=== PATIENT | female | born 1955 | race Caucasian/White ===

== ENCOUNTER 2019-11-27 15:26 | Outpatient (CLI) | payer MEDICARE, OTHER, SELFPAY ==
--- NOTE | 2019-11-27 16:08 | XR_ITS ---
WS: [id number] ELBOW RIGHT TECHNIQUE: 3 views of the right elbow CLINICAL INFORMATION: RIGHT LATERAL EPICONDYLITIS COMPARISON: None. FINDINGS: No significant joint effusion. Distal humerus is normal in appearance. Normal radial head. Normal ole cranon. No evidence of acute fracture dislocation. XR/XR elbow RT min 3V* [id number] IMPRESSION: No acute fractures
--- NOTE | 2019-11-27 16:09 | XR_ITS ---
WS: [id number] WRIST RIGHT TECHNIQUE: 3 views of the right wrist CLINICAL INFORMATION: RIGHT LATERAL EPICONDYLITIS COMPARISON: None. FINDINGS: Diffuse osteopenia. Plate and screw fixation involving the distal radius extending into the third met acarpal shaft. Prior proximal and distal carpal row fusion. Chronic resection or erosion of the dista l ulna is unchanged. Small bony avulsion at the tip of the ulna better seen on the oblique view is new from 2019. Recommen d correlation with area of trauma. XR/XR wrist RT min 3V* [id number] IMPRESSION: 1. Stable postoperative changes plate and screw fixation involving the distal radius extending into the third metacarpal shaft. 2. Chronic unchanged proximal and distal row carpal fusion. 3. Tiny bony avulsion at the tip of the distal ulna appears new compared to [facility] 2018. Recommend correlation with area of trauma. 4. 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
== END 2019-11-27 15:27 | disposition home or self-care (01) ==
LOC: RAD 15:31
PROVIDERS: Family Provider Electrodiagnostic Medicine; PCP Electrodiagnostic Medicine; Visit Provider Electrodiagnostic Medicine
DX: M77.11 Lateral epicondylitis, right elbow (principal); M25.531 Pain in right wrist; M06.9 Rheumatoid arthritis, unspecified
CPT/HCPCS: 73080; 73110

== ENCOUNTER → 2019-12-05 10:43 | Outpatient (BNVA) | payer MEDICARE, OTHER, SELFPAY | PROVIDERS: Family Provider Electrodiagnostic Medicine; PCP Electrodiagnostic Medicine; Visit Provider Internal Medicine Rheumatology | DX: M05.79 Rheumatoid arthritis with rheumatoid factor of multiple sites without organ or systems involvement (principal); Z79.899 Other long term (current) drug therapy | CPT/HCPCS: 36415; 80076; 82565; 85025; 85651 ==

== ENCOUNTER 2020-03-18 08:56 | Outpatient (CLI) | payer MEDICARE, OTHER, SELFPAY ==
--- NOTE | 2020-03-18 09:04 | XR_ITS ---
WS: [id number] LUMBAR SPINE: 3 VIEWS TECHNIQUE: AP, lateral and L5-S1 spot. HISTORY: BACK PAIN, LUMBAR WITH RADICULOPATHY COMPARISON: None available. Posterior lumbar alignment is normal. There is mild LEFT convex curvature of the lumbar spine. Asymme tric disc space narrowing along the concave portion of the curvature most significant at L3-4. No fra ctures. Marked disc space narrowing and desiccation at L3-4 and L5-S1 with small endplate osteophytes. Mild narrowing of the RIGHT SI joint with sclerosis. Prior cholecystectomy. XR/XR lumbar spine 2-3V* [id number] IMPRESSION: 1. Mild LEFT convex scoliosis with asymmetric disc space narrowing at L3-4. 2. No fracture. 3. Advanced degenerative disc disease at L3-4 and L5-S1.
== END 2020-03-18 08:57 | disposition home or self-care (01) ==
LOC: RADWPI 09:01
PROVIDERS: Family Provider Electrodiagnostic Medicine; PCP Electrodiagnostic Medicine; Visit Provider Electrodiagnostic Medicine
DX: M54.16 Radiculopathy, lumbar region (principal); M54.9 Dorsalgia, unspecified; M51.36 Other intervertebral disc degeneration, lumbar region
CPT/HCPCS: 72100

== ENCOUNTER 2020-03-22 12:49 | Outpatient (CLI) | payer MEDICARE, OTHER, SELFPAY ==
--- NOTE | 2020-03-22 12:57 | MR_ITS ---
WS: [id number] MRI LUMBAR SPINE NONCONTRAST TECHNIQUE: Sagittal T1, T2 and STIR imaging. Axial T1 and T2 imaging. CLINICAL INFORMATION: BACK PAIN, LUMBAR, W/RADICULOPATHY COMPARISON: None. FINDINGS: Mild lumbar curve. No acute compression. Multilevel disc bulging. Disc bulging worse at T12-L1, L3-L4 , L4-5. T12-L1: Mild disc bulging with slight effacement of ventral thecal sac. Spinal canal and foramen are patent. L1-L2: Mild disc bulging with slight effacement of ventral thecal sac. Narrowing of the left subartic ular recess. Mild facet arthropathy. Mild to moderate left foraminal narrowing. L2-L3: Mild disc bulging with slight narrowing of the right articular recess. Small right foraminal p rotrusion with mild right and no significant left foraminal narrowing. Mild central canal stenosis. M ild facet arthropathy. L3-L4: Mild disc bulging with slight anterolisthesis. Moderate to severe central canal stenosis with crowding of the cauda equina nerve rootlets. Prominent dorsal epidural fat and facet arthropathy cont ributes to central canal stenosis. Moderate right and no significant left foraminal narrowing. L4-L5: Mild disc bulging with moderate central canal stenosis. Impingement on the traversing L5 nerve roots. Mild to moderate right foraminal narrowing. Moderate facet arthropathy. L5-S1: Mild disc bulging with osteophytic ridging. Mild bilateral foraminal narrowing. Mild facet art hropathy. Visualized pelvic bony structures: Normal. Paravertebral soft tissues: Normal. Mild central canal stenosis at the craniocervical junction on the general studies program chair imaging MR/MR lumbar spine wo con* [id number] IMPRESSION: 1. Mild lumbar curve. No acute compression. 2. Moderate to severe central canal stenosis L3-4 with slight anterolisthesis. Disc bulging in combination with facet arthropathy and dorsal epidural fat res ults in circumferential narrowing of the thecal sac with crowding of the cauda equina nerve rootlets. 3. Mild central canal stenosis L2-3 and moderate central canal stenosis L4-5. 4. Mild to moderate foraminal narrowing worse at right L3-L4 and right L4-5. 5. Mild central canal narrowing at the cervical craniocervical junction seen o n the general studies program chair imaging.
== END 2020-03-22 12:50 | disposition home or self-care (01) ==
LOC: RADSHAW 12:54
PROVIDERS: PCP Electrodiagnostic Medicine; Visit Provider Electrodiagnostic Medicine
DX: M54.16 Radiculopathy, lumbar region (principal); M54.5 Low back pain; M48.061 Spinal stenosis, lumbar region without neurogenic claudication
CPT/HCPCS: 72148

== ENCOUNTER 2020-05-29 12:10 | Outpatient (CLI) | payer MEDICARE, OTHER, SELFPAY ==
--- NOTE | 2020-05-29 12:28 | XR_ITS ---
WS: [id number] XR knee RT 3V* [id number] REASON FOR EXAM: R KNEE PAIN/ARTHRITIS FINDINGS: No focal bony abnormality is identified. The joint spaces of the patellofemoral joint, medial knee joint compartment and lateral knee joint co mpartment are well preserved. No soft tissue abnormality. XR/XR knee RT 3V* [id number] IMPRESSION: No significant abnormality.
== END 2020-05-29 12:11 | disposition home or self-care (01) ==
LOC: RAD 12:15
PROVIDERS: PCP Electrodiagnostic Medicine; Visit Provider Electrodiagnostic Medicine
DX: G62.9 Polyneuropathy, unspecified (principal); M25.561 Pain in right knee
CPT/HCPCS: 73562

== ENCOUNTER → 2020-09-25 09:07 | Outpatient (BNVA) | payer MEDICARE, OTHER, SELFPAY | PROVIDERS: PCP Electrodiagnostic Medicine; Visit Provider Obstetrics & Gynecology | DX: L29.2 Pruritus vulvae (principal) | CPT/HCPCS: 88305 ==

== ENCOUNTER 2020-12-02 12:33 | Outpatient (CLI) | payer MEDICARE, SELFPAY ==
--- NOTE | 2020-12-02 12:55 | XRR_ITS ---
PROCEDURE INFORMATION: Exam: XR Lumbosacral Spine Exam date and time: 12/02/2020 12:56 PM Age: 65 years old Clinical indication: Patient HX: Low back pain, down right leg; Additional info: R knee pain/lumbar back pain w/radiculopathy TECHNIQUE: Imaging protocol: XR of the lumbosacral spine. Views: 2 or 3 views. COMPARISON: MR lumbar spine wo con* [id number] 03/22/2020 1:10 PM FINDINGS: Bones/joints: Normal. No acute fracture. Normal alignment. There is narrowing of the intervertebral disc space at multiple levels corresponding to moderate osteoarthritis. The examination does not show instability with flexion and extension maneuvers. Soft tissues: Unremarkable. XR/XR lumbar spine f/e only [id number] IMPRESSION: 1. No acute bone abnormality. 2. Moderate osteoarthritis 3. Negative for instability with flexion and extension.
== END 2020-12-02 12:34 | disposition home or self-care (01) ==
PROVIDERS: PCP Electrodiagnostic Medicine; Visit Provider Electrodiagnostic Medicine
DX: M25.561 Pain in right knee (principal); M54.5 Low back pain; M47.9 Spondylosis, unspecified
CPT/HCPCS: 72120

== ENCOUNTER → 2020-12-04 12:58 | Outpatient (BNVA) | payer MEDICARE, SELFPAY | PROVIDERS: PCP Electrodiagnostic Medicine; Visit Provider Psychiatry & Neurology Neurology | DX: M79.604 Pain in right leg (principal); M54.9 Dorsalgia, unspecified | CPT/HCPCS: 95886; 95908 ==

== ENCOUNTER 2020-12-18 13:49 | Outpatient (CLI) | payer MEDICARE, SELFPAY ==
--- NOTE | 2020-12-18 14:15 | XR_ITS ---
WS: [id number] SCREENING DEXA SCAN [employer] CLINICAL INFORMATION: Z13.820 - Encounter for screening for osteoporosis COMPARISON: None. FINDINGS: The L1-L4 bone mineral density measures 1.087 g/cm2. This corresponds to a T score score of -0.8 and Z score of 1.0. Left femoral neck bone mineral density measures 0.857 g/cm2. This corresponds to a T score of -1.2 an d Z score of 0.2. Right femoral neck bone mineral density measures 0.790 g/cm2. This corresponds to a T score -1.7of an d Z score of -0.3. Mean femoral neck bone mineral density measures 0.823 g/cm2. This corresponds to a T score of -1.5 an d Z score of 0.0. XR/XR DEXA axial skeleton* [id number] IMPRESSION: Osteopenia Patient's FRAX calculated 10 year probability for major osteoporotic fracture i s 30.0 % and osteoporotic hip fracture is 8.3%.
--- NOTE | 2020-12-18 15:00 | MM_ITS ---
WS: [id number] BILATERAL SCREENING DIGITAL MAMMOGRAM WITH CAD HISTORY: Z12.4 - Encounter for screening for malignant neoplasm of cervix COMPARISON: None available. Bilateral CC and MLO views submitted. Computer aided detection analyzed. Breast composition: There are scattered areas of fibroglandular density. No suspicious masses, microc alcifications or architectural distortion. MM/[place] [id number] IMPRESSION: BI-RADS: 1-Negative FOLLOW UP: 1 Year Follow-up
== END 2020-12-18 13:50 | disposition home or self-care (01) ==
PROVIDERS: PCP Electrodiagnostic Medicine; Visit Provider Obstetrics & Gynecology
DX: Z13.820 Encounter for screening for osteoporosis; Z12.31 Encounter for screening mammogram for malignant neoplasm of breast; Z78.0 Asymptomatic menopausal state
CPT/HCPCS: 77067; 77080

== ENCOUNTER → 2020-12-23 08:34 | Outpatient (BNVA) | payer MEDICARE, SELFPAY | PROVIDERS: PCP Electrodiagnostic Medicine; Referring Provider Orthopaedic Surgery; Visit Provider Anesthesiology Pain Medicine | DX: M54.9 Dorsalgia, unspecified (principal); M54.41 Lumbago with sciatica, right side; M79.604 Pain in right leg | CPT/HCPCS: 99205 ==

== ENCOUNTER → 2020-12-30 12:54 | Outpatient (BNVA) | payer MEDICARE, SELFPAY | PROVIDERS: PCP Electrodiagnostic Medicine; Visit Provider Anesthesiology Pain Medicine | DX: M54.16 Radiculopathy, lumbar region (principal); M54.9 Dorsalgia, unspecified | CPT/HCPCS: 64483; 64484; J1100; J3490 ==

== ENCOUNTER → 2021-01-13 09:56 | Outpatient (BNVA) | payer MEDICARE, SELFPAY | PROVIDERS: PCP Electrodiagnostic Medicine; Visit Provider Anesthesiology Pain Medicine | DX: M54.9 Dorsalgia, unspecified (principal); M79.604 Pain in right leg | CPT/HCPCS: 99213 ==

== ENCOUNTER → 2021-02-06 10:15 | Outpatient (BNVA) | payer MEDICARE, SELFPAY | PROVIDERS: PCP Electrodiagnostic Medicine; Visit Provider Orthopaedic Surgery | DX: M48.061 Spinal stenosis, lumbar region without neurogenic claudication (principal); Z20.822 Contact with and (suspected) exposure to COVID-19 | CPT/HCPCS: 87635 ==

== ENCOUNTER 2021-02-12 10:26 | Day surgery (SDC) | payer MEDICARE, SELFPAY ==
[2021-02-10 09:47] VITALS: BMI 26.4
--- NOTE | 2021-02-10 09:59 | ANES.PREANE2 ---
Pre-Anesthetic Assessment Pre-Anesthetic Assessment: Height/Weight: Height 1.52 m Weight 61.235 kg Preop Diagnosis: back pain Proposed Procedure: Operation Date: 02/12/21 14:20 Proposed Procedures p Lumbar Spine Decompression [id number] M48.061(Not Applicable) - Jose A Shaw, DO Familial anesthetic complications: None Social: Social History: No alcohol and No tobacco Exam: Pre-Anes Outpt Exam: alert, oriented x 3, clear to auscultation bilaterally and regular rate & rhythm Airway: Cervical ROM: WNL MP: 2 Dentition: Full Musc/skel: Musc/skel: RA Anesthetic Plan: ASA status: 2 Anesthesia: General Risk of > 500 ml blood loss (7ml/kg in children): No PFSH Anesthesia PFSH: Medical History History of migraine Has had migraines since her 30s and it is controlled with medication managed by her primary care provider. She does not have a neurologist No pertinent past medical history Denies diabetes, asthma, hypertension, seizures, DVT/PE PCP: Dr. Blanco Rheumatoid arthritis Diagnosed in 2019 and is currently on medications managed by android ui developer Dr. Gray Surgical History History of cholecystectomy October 2017----laparoscopic procedure performed by Dr. Singh at [facility] – [place], [place] History of hand surgery Right hand fusion done by Dr. Atkins for arthritis S/P bilateral cataract extraction Done in 2015 Family History Father Diabetes Hypertension Thyroid condition Brother Hypertension Mother Stroke Thyroid condition Sister Thyroid condition Denies family history of Colon cancer Ovarian cancer Hyperlipidemia Breast cancer Uterine cancer Social History Smoking and tobacco status: never smoked Second hand smoke exposure: No Alcohol intake: never History of recent travel: No Data Anesthesia Cardiac Studies: No Data to Display
--- NOTE | 2021-02-12 | XR_ITS ---
WS: [id number] Lumbar spine, C-arm fluoroscopy, 02/12/2021 Clinical Data: Decompression. or pics Comparison: Lumbar spine, 12/02/2020. Findings: Dr. Shaw performed decompression of the lower lumbar space. XR/XR lumbar spine 1V [id number] Impression: Decompression of a lower lumbar space.
--- NOTE | 2021-02-12 | SCC_ITS ---
Procedure Done: 1. Right L3/4 laminectomy with partial facetectomy 2. Right L4/5 laminectomy with partial facetectomy 25.9 seconds of fluoroscopic guidance, for a cumulative dose of 4.79 mGy, was provided to Dr. Shaw by the radiology department. C-arm images of the lumbar spine were saved for the patient's permanent record. [facility]
[2021-02-12 10:35] VITALS: BP 159/94; PULSE 81; RESP 18; TEMP 36.8; O2SAT 97
--- NOTE | 2021-02-12 10:55 | W.PM.OPSUD ---
Surgery/Procedure H&P Update DATE OF PROCEDURE: February 12, 2021 DATE H&P PERFORMED: 01/16/21 H&P UPDATE INFORMATION: I have reviewed H&P completed within last 30 days, I have examined patient prior to procedure and No changes to prior documentation PREOP DIAGNOSIS: lumbar stenosis PLANNED PROCEDURE: Operation Date: 02/12/21 11:50 Proposed Procedures p Lumbar Spine Decompression [id number] M48.061(Not Applicable) - Jose A Shaw DO
[2021-02-12] MEDS: sodium chloride 0.9% 1,000 ML 30 ML IV (10:56)
--- NOTE | 2021-02-12 11:02 | P.ANESUD_ITS ---
Pre-Anesthetic Update Pre-Anesthetic Assessment: Date of Surgery/Procedure: 02/12/21 Preop Nai gnosis: lumbar stenosis Proposed Procedure: Operation Date: 02/12/21 11:50 Proposed Procedures p Lumbar Spine Decompression [id number] 36453 M48.061(Not Applicable) - Jose A Shaw, DO Any changes to Pre-Anesthetic Assessment?: No Last Intake: Intake Last Liquid Date 02/11/21 Last Liquid Time 18:00 Last Solid Date 02/11/21 Last Solid Time 18:00 Vitals: Temperature 98.2 F 02/12/21 10:35 Temperature Source Temporal Artery S can 02/12/21 10:35 Pulse Rate 81 02/12/21 10:35 Pulse Rhythm 02/12/21 10:35 Pulse Strength 3+ Normal 02/12/21 10:35 Respiratory Rate 18 02/12/21 10:35 Blood Pressure 159/94 02/12/21 10:35 Blood Pressure Kathleen n 115 02/12/21 10:35 Pulse Oximetry 97 02/12/21 10:35 Oxygen Delivery Me thod 02/12/21 10:35 Exam: Pre-Anes Outpt Exam: alert, oriented x 3, clear to auscultation bilaterally and regular rate & rhythm Cardiac Studies: No Data to Display
[2021-02-12 13:04] VITALS: BP 111/64; PULSE 84; RESP 16; TEMP 36.3; O2SAT 100
[2021-02-12 13:05] VITALS: BP 111/64; PULSE 85; RESP 18; O2SAT 100
--- NOTE | 2021-02-12 13:09 | PM.OP ---
Operative Report Date of procedure: February 12, 2021 Pre-op Diagnosis: lumbar stenosis Post-op diagnosis: same Procedure Done: 1. Right L3/4 laminectomy with partial facetectomy 2. Right L4/5 laminectomy with partial facetectomy Surgeon: Jose A Shaw Anesthesia: General Estimated blood loss (mL): 5 Condition: stable Disposition: PACU Procedure: 1. Right L3/4 laminectomy with partial facetectomy 2. Right L4/5 laminectomy with partial facetectomy Patient is brought to the operative suite. After undergoing anesthesia they are placed in the supine position. All areas of impingement are well padded. Patient is then prepped and draped in the normal sterile fashion. A skin incision is made over the L3/4 level. This is confirmed under c-arm guidance. A series of dilators are passed and the tubular retractor is docked on the L3 lamina. A bovie is used to clear the soft tissue off the lamina and the L 3/4 facet joint. A high speed kavon is then used to perform the laminectomy and take down the medial aspect of the L 3/4 facet joint. A kerrison rongeure was then used to take down the remaining lamina and smooth the edge of the laminectomy up to the point where the ligamentum flavum attaches. Attention was then brought to the medial aspect of the facet joint. The remaining medial aspect of the superior and inferior aspect of the facet joint were taken down with the kerrison from the pedicle of L3 to L 4. The facet joint had significant hypertrophy. Attention was then brought to the Ligamentum Flavum. The ligament was taken down from the lamina of L3 to L4 and out medially to the remaining facet joint. The ligament was thickened. The dura was then exposed. The dura was in good repair. The L3 nerve was then traced with a curette out the L3/4 foramen and found to be adequately decompressed. The L4 nerve was traced with a curette around the L4 pedicle. The lateral recess was opened with a kerrison helping to further decompress the L4 nerve. Wound is then irrigated copiously with saline and surgiflo is used to stop any bleeding. The tubular retractor is removed The same incision is used over the L4/5 level. This is confirmed under c-arm guidance. A series of dilators are passed and the tubular retractor is docked on the L4 lamina. A bovie is used to clear the soft tissue off the lamina and the L 4/5 facet joint. A high speed kavon is then used to perform the laminectomy and take down the medial aspect of the L 4/5 facet joint. A kerrison rongeure was then used to take down the remaining lamina and smooth the edge of the laminectomy up to the point where the ligamentum flavum attaches. Attention was then brought to the medial aspect of the facet joint. The remaining medial aspect of the superior and inferior aspect of the facet joint were taken down with the kerrison from the pedicle of L4 to L 5. The facet joint had significant hypertrophy. Attention was then brought to the Ligamentum Flavum. The ligament was taken down from the lamina of L4 to L5 and out medially to the remaining facet joint. The ligament was thick. The dura was then exposed. The dura was in good repair. The L4 nerve was then traced with a curette out the L4/5 foramen and found to be adequately decompressed. The L5 nerve was traced with a curette around the L5 pedicle. The lateral recess was opened with a kerrison helping to further decompress the L5 nerve. Wound is then irrigated copiously with saline and surgiflo is used to stop any bleeding. The tubular retractor is removed and the wound is closed with vicryl and monocryl suture. Glue is then used to protect the wound. A sterile dressing is then placed. Patient was then placed in the supine position and transferred to the PACU in stable condition.
[2021-02-12 13:10] VITALS: BP 104/68; BP 111/64; PULSE 81; PULSE 82; RESP 20; RESP 22; O2SAT 100
[2021-02-12 13:15] VITALS: BP 104/68; PULSE 81; RESP 23; O2SAT 100
[2021-02-12 13:21] VITALS: BP 102/64; PULSE 80; RESP 19; TEMP 36.8; O2SAT 100
[2021-02-12] MEDS: HYDROcodone-acetaminophen 5-325 mg Tablet 1 TAB PO (14:02)
--- NOTE | 2021-02-12 15:44 | ANE.PACU2 ---
Inpatient post-anesthesia follow up: Airway intact: Yes Vital signs: Temperature 98.2 F Pulse Rate 80 Respiratory Rate 19 Blood Pressure 102/64 Pulse Oximetry 100 Oxygen Delivery Me thod Room Air Oxygen Flow Rate Fraction of Inspir ed Oxygen Hydration adequate: Yes Nausea and vomiting: No Pain level: 3 Mental status: Baseline
== END 2021-02-12 14:48 | disposition home or self-care (01) ==
PROVIDERS: PCP Electrodiagnostic Medicine; Visit Provider Orthopaedic Surgery
PROC: (CPT 63005; principal; 2021-02-12 11:40)
DX: M48.061 Spinal stenosis, lumbar region without neurogenic claudication (principal); M06.9 Rheumatoid arthritis, unspecified
CPT/HCPCS: 63047; 63048; 72020; 76000; J0690; J1100; J2405; J2704; J2710; J3010; J3490; J7030

== ENCOUNTER → 2021-04-15 08:43 | Outpatient (BNVA) | payer MEDICARE, SELFPAY | PROVIDERS: PCP Electrodiagnostic Medicine; Visit Provider Orthopaedic Surgery | DX: M25.561 Pain in right knee (principal); M17.11 Unilateral primary osteoarthritis, right knee; M25.461 Effusion, right knee | CPT/HCPCS: 73560; 73565 ==

== ENCOUNTER 2021-06-02 10:48 | Outpatient (CLI) | payer MEDICARE, SELFPAY ==
--- NOTE | 2021-06-02 11:03 | XR_ITS ---
WS: [id number] CHEST 2 VIEWS HISTORY: SCREENING FOR RESPIRATORY TUBERCULOSIS COMPARISON: 01/14/2018 Lungs: Clear with no abnormality. No pleural effusion or pneumothorax. Cardiac size: Normal. Mediastinum/Aorta: Normal mediastinum. Bones: RIGHT curvature thoracolumbar spine. Prior cholecystectomy. XR/XR chest 2V* [id number] IMPRESSION: No acute cardiopulmonary disease.
== END 2021-06-02 10:49 | disposition home or self-care (01) ==
LOC: RAD 10:55
PROVIDERS: PCP Electrodiagnostic Medicine; Visit Provider Internal Medicine Rheumatology
DX: Z11.1 Encounter for screening for respiratory tuberculosis (principal)
CPT/HCPCS: 71046

== ENCOUNTER 2022-01-21 07:36 | Outpatient (CLI) | payer MEDICARE, SELFPAY ==
--- NOTE | 2022-01-21 07:43 | MM_ITS ---
WS: [id number] Bilateral screening 3D tomosynthesis digital mammogram, 01/21/2022 Clinical Data: Z12.39 - Encounter for other screening for malignant neop... Comparison: 12/18/2020, 02/11/2018, 03/29/2017, 12/05/2015, 11/02/2014. Findings: The breast parenchymal pattern shows fat replacement. No spiculated masses or clustered calcification s are seen. There are no secondary signs of carcinoma. MM/[place] [id number] Impression: 1. Negative bilateral mammogram unchanged. 2. Recommend annual screening mammograms. BIRADS: 1-Negative FOLLOW UP: 1 Year Follow-up The CAD drawing checker was used.
== END 2022-01-21 07:37 | disposition home or self-care (01) ==
LOC: RAD 07:37
PROVIDERS: PCP Electrodiagnostic Medicine; Visit Provider Obstetrics & Gynecology
DX: Z12.31 Encounter for screening mammogram for malignant neoplasm of breast (principal)
CPT/HCPCS: 77063; 77067

== ENCOUNTER → 2022-04-28 08:51 | Outpatient (BNVA) | payer MEDICARE, SELFPAY | PROVIDERS: PCP Family Medicine; Visit Provider Family Medicine | DX: M06.00 Rheumatoid arthritis without rheumatoid factor, unspecified site (principal) | CPT/HCPCS: 82565; 84460; 85025; 85651; 86140 ==

== ENCOUNTER → 2022-05-04 14:03 | Outpatient (BNVA) | payer MEDICARE, SELFPAY | PROVIDERS: PCP Family Medicine; Visit Provider Family Medicine | DX: R30.0 Dysuria (principal); N39.0 Urinary tract infection, site not specified; R10.9 Unspecified abdominal pain; R10.32 Left lower quadrant pain | CPT/HCPCS: 81000; 87086 ==

== ENCOUNTER 2022-10-22 11:14 | Emergency (ER) | payer MEDICARE, SELFPAY ==
[2022-10-22 11:43] VITALS: BP 153/84; PULSE 63; RESP 16; TEMP 36.3; O2SAT 97
--- NOTE | 2022-10-22 14:16 | CT_ITS ---
WS: [id number] CT HEAD NONCONTRAST HISTORY: right temporal osorio of new character TECHNIQUE: Contiguous axial imaging performed through the brain in 2.5 mm imaging. Bone and soft tiss ue windows. Sagittal and coronal reformats reviewed. All CT scans at [facility] use at least one of these dose optimization techniques: automated exposure control; mA and/or kV adjustment per pa tient size (includes targeted exams where dose is matched to clinical indication); or iterative recon struction. DLP: 992.89 mGy.cm COMPARISON: 02/22/2012 No acute intracranial hemorrhage, midline shift or mass effect. Mild atrophy and small vessel ischemic disease. Prior lacunar infarct RIGHT occipital lobe. Ventricles: Normal size with no hydrocephalus. Focal dense ossification noted at the C1 level. On a prior radiograph from 11/08/2014 this corresponds to hypertrophic bone formation and increased density of the odontoid process from a prior fracture w hich is displaced. This was described on 11/08/2014. There is mass effect on the upper cervical cord b ut similar to the prior study. Paranasal sinuses: As visualized are clear. Mastoid air cells: Well pneumatized. Calvarium and scalp: Skull is intact with no soft tissue edema or swelling. CT/CT head wo con* [id number] IMPRESSION: 1. No acute intracranial hemorrhage or edema. 2. Remote lacunar infarct RIGHT occipital lobe. 3. Dense osseous formation noted at the C1 level. There is mass effect upon th e adjacent upper cervical cord. This was also described on a prior radiograph o f the cervical spine from 11/08/2014. Chronic remote odontoid fracture with hype rtrophic bone formation during healing. Very similar in appearance to the prior study from 2014.
--- NOTE | 2022-10-22 14:18 | W.ED.HA ---
HPI - Headache General: Chief Complaint: Headache Stated Complaint: Headache since wednesday Time Seen by Provider: 10/22/22 14:02 Source: patient Mode of arrival: ambulatory Limitations: no limitations History of Present Illness: This patient presents to our emergency department because of concerns about a persistent headache. She states that she has had a right-sided headache that came on gradually on Wednesday. She states that has been persistent since that time. It does come up wax and wane a bit but generally has been present. She denies any visual changes, difficulty with speech, discoordination, weakness or numbness. She does have a history of migraine headaches that she has states have been lessened with her use of Topamax. States they usually do not last this long. She denies any fevers or chills head trauma etc. She denies any jaw claudication visual disturbances change in hearing etc. No recent fevers or illness. No exposure to infectious disease. He does relate that there is a family history of hemorrhagic stroke. Associated symptoms: Reports nausea; Deny chest pain, confusion, fever(s), rash or vomiting Review of Systems Const: Denies: fever(s) or chills Eyes: Denies: change in vision ENMT: Denies: throat pain, odynophagia, change in hearing, tinnitus, disequilibrium, nasal discharge or nasal congestion Card: Denies: chest pain, palpitations or irregular heart rhythm Resp: Denies: dyspnea, productive cough or non-productive cough GI: Reports: nausea; Denies: abdominal pain or vomiting : Denies: flank pain, difficulty voiding, dysuria or urinary frequency Musc: Denies: neck pain, back pain, extremity pain or extremity swelling Skin/Breast: Denies: rash Neuro: Reports: headache(s); Denies: numbness in extremities, weakness in extremities, dizziness, vertigo, confusion, behavioral changes or Slurred speech present Psych: Denies: anxiety or depression Endo: Denies: polyuria or polydipsia PFSH ED PFSH: Medical History History of migraine Has had migraines since her 30s and it is controlled with medication managed by her primary care provider. She does not have a neurologist No pertinent past medical history Denies diabetes, asthma, hypertension, seizures, DVT/PE PCP: Dr. Blanco Rheumatoid arthritis Diagnosed in 2019 and is currently on medications managed by chiropractor assistant Dr. Gray Surgical History History of back surgery (~01/2021) 1. Right L3/4 laminectomy with partial facetectomy 2. Right L4/5 laminectomy with partial facetectomy Performed by Dr. Shaw History of cholecystectomy October 2017----laparoscopic procedure performed by Dr. Singh at [facility] [place] History of hand surgery 2015---right hand fusion done by Dr. 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 He answers questions in a goal-directed fashion. Const: COMMON NORMALS: no acute distress, average body habitus, patient oriented x3, healthy appearing and alert GENERAL APPEARANCE: cooperative and comfortable HENMT: COMMON NORMALS: normocephalic, atraumatic, EAC's normal, TM's normal bilaterally, Normal nasal mucous membranes and turbinates present and moist oral mucous membranes HEAD & SCALP: normocephalic and atraumatic; no scalp tenderness and no Temporal artery tenderness present FACE & SINUS: normal facial exam and face symmetric NOSE: Normal nasal mucous membranes and turbinates present EXTERNAL AUDITORY CANAL: EAC's normal TYMPANIC MEMBRANE: TM's normal bilaterally Eye: COMMON NORMALS: Equal, round and reactive pupils present, EOMs intact bilaterally and conjunctivae normal CONJUNCTIVA: Yes conjunctivae normal PUPIL: Yes Equal, round and reactive pupils present Neck/C-Spine: COMMON NORMALS: full ROM CERVICAL SPINE: No Cervical spine tenderness, No Paracervical muscle tenderness, No Paracervical spasm and No Trapezius muscle tenderness Chest: COMMONS NORMALS: normal inspection of the chest Resp: COMMON NORMALS: normal respiratory effort, No use of accessory muscles and clear to auscultation bilaterally AUSCULTATION: clear to auscultation bilaterally Cardio: COMMON NORMALS: regular rate, regular rhythm, No murmurs present (Cardio) and Peripheral pulses 2+ throughout RATE: regular rate RHYTHM: regular rhythm PERIPHERAL PULSES: Peripheral pulses 2+ throughout GI: COMMON NORMALS: Normal to inspection, nondistended, normoactive bowel sounds present and Soft to palpation PALPATION: Yes Soft to palpation : COMMON NORMALS: Yes no CVA tenderness BLADDER/KIDNEY EXAM: Yes no CVA tenderness Back/Pelvis: COMMON NORMALS: no CVA tenderness, thoracic and lumbar spine normal to inspection, no thoracic nor lumbar tenderness and thoraco-lumbar ROM normal Extremity: COMMON NORMALS: normal to inspection, full ROM, capillary refill normal, no calf tenderness and no pedal edema Neuro: COMMON NORMALS: patient oriented x3, moves all extremities, no focal motor deficits and no sensory deficits noted SENSORIUM/ORIENTATION: Yes alert CRANIAL NERVES: Yes CN normal except as noted Psych: COMMON NORMALS: mental status grossly normal and cooperative Skin: COMMON NORMALS: no rashes or lesions noted and turgor normal GENERAL SKIN EXAM: no rashes or lesions noted and turgor normal Course Reevaluation(s): Reevaluation #1: Patient states she felt much better. Discussed findings and results with both she and daughter. Time: 15:36 Vital Signs: Vital signs: Vital Signs Temperature 97.4 F L 10/22/22 11:43 Pulse Rate 63 10/22/22 11:43 Respiratory Rate 16 10/22/22 11:43 Blood Pressure 153/84 10/22/22 11:43 Pulse Oximetry 97 10/22/22 11:43 Oxygen Delivery Me thod 10/22/22 11:43 MDM - Headache Medical Decision Making This patient presented to the emergency department because of a persistent right-sided headache. It was in the similar location as her usual migraine headaches and came on with the same characteristics but has persisted. Because of her family history she became concerned and presented to the emergency department for further evaluation. She had no other associated secondary symptoms that include any for focal neurologic symptoms and/or findings while evaluated in the emergency department. The headache did not have a rapid onset and was otherwise not associated with any other symptoms. Clinical exam was reassuring. There was no temporal artery tenderness. No other focal findings. Imaging was obtained which was reassuring but did have an incidental finding of osseous formation in the cervical spine. Patient and daughter stated that there was some past history of consideration for neck surgery but her diagnosis of rheumatoid arthritis and needing arthroplasty of her right wrist took precedence. She got relief from the usual headache cocktail while in the emergency department. Sed rate and other findings were reassuring making such things as arteritis etc. less likely. We discussed the reassuring nature of her CT scan regarding no current evidence of a recent intracranial hemorrhage, mass effect etc. however the sensitivity has waned over the ensuing several days since the onset of her headache but her headache was not 1 that would normally be of a worrisome nature. We also discussed the need for follow-up with her primary care doctor regarding potential MRI to further evaluate her neck issue as this may be a contributing factor to her headaches. Stable at this time to be discharged with outpatient follow-up. Both patient and daughter were appreciative of care. Lab Data I reviewed the patient's lab results. 10/22/22 14:55 10/22/22 14:[address] 10/22/22 14:16 IMPRESSION: 1. No acute intracranial hemorrhage or edema. 2. Remote lacunar infarct RIGHT occipital lobe. 3. Dense osseous formation noted at the C1 level. There is mass effect upon the adjacent upper cervical cord. This was also described on a prior radiograph of the cervical spine from 11/08/2014. 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 Very similar in appearance to the prior study from 2014. Laboratory Results WBC 7.0 10^3/uL (4.0-10.0) 10/22/22 14:55 RBC 4.47 10^6/uL (4.1-5.3) 10/22/22 14:55 Hgb 12.5 g/dL (11.5-15.3) 10/22/22 14:55 Hct 40.3 % (37.0-47.0) 10/22/22 14:55 MCV 90.2 fl (81-99) 10/22/22 14:55 MCH 28.0 pg (28.0-34.0) 10/22/22 14:55 MCHC 31.0 g/dL (30.0-36.0) 10/22/22 14:55 RDW 13.4 % (12.1-15.1) 10/22/22 14:55 Plt Count 402 10^3/cmm (130-400) H 10/22/22 14:55 MPV 9.1 fL (7.4-10.4) 10/22/22 14:55 Neut % (Auto) 47.3 % 10/22/22 14:55 Lymph % (Auto) 43.8 % 10/22/22 14:55 [place] % (Auto) 6.0 % 10/22/22 14:55 Eos % (Auto) 2.3 % 10/22/22 14:55 Baso % (Auto) 0.3 % 10/22/22 14:55 Neut # (Auto) 3.30 10^3/uL (1.8-7.7) 10/22/22 14:55 Lymph # (Auto) 3.1 10^3/uL (0.8-4.8) 10/22/22 14:55 [place] # (Auto) 0.4 10^3/uL (0.2-0.9) 10/22/22 14:55 Eos # (Auto) 0.2 10^3/uL (0.0-0.8) 10/22/22 14:55 Baso # (Auto) 0.0 10^3/uL (0.0-0.1) 10/22/22 14:55 Nucleated RBC % (auto) 0 % 10/22/22 14:55 Nucleated RBCs # 0.0 /100WBC 10/22/22 14:55 ESR 2 mm/hr (0-15) 10/22/22 14:55 Sodium 141 mmol/L (136-145) 10/22/22 14:55 Potassium 4.6 mmol/L (3.5-5.1) 10/22/22 14:55 Chloride 108 mmol/L (98-107) H 10/22/22 14:55 Carbon Dioxide 22 mmol/L (22-29) 10/22/22 14:55 Anion Gap 15.6 (5-19) 10/22/22 14:55 BUN 17 mg/dL (8-23) 10/22/22 14:55 Creatinine 1.0 mg/dL (0.5-0.9) H 10/22/22 14:55 GFR Calculation 55.0 mL/min (90-130) L 10/22/22 14:55 Glucose 101 mg/dL (65-115) 10/22/22 14:55 Calculated Osmolality 294 mOsm/kg (285-295) 10/22/22 14:55 Calcium 10.0 mg/dL (8.5-10.5) 10/22/22 14:55 Discharge Plan Discharge Patient Disposition: Home Clinical Impression: Headache Condition: Stable Prescriptions: No Action topiramate 100 mg tablet 100 mg PO BEDTIME clobetasol 0.05 % ointment 1 applic topical .COMPLEX Rx Instructions: 1 applic topical 2 times weekly hydrocortisone 2.5 % ointment 1 applic topical BID PRN (Reason: skin irritation) Qty: 28.35 1RF Rx Instructions: To face no more than 2 weeks naproxen sodium [Aleve] 220 mg capsule 220 mg PO BID PRN (Reason: Pain) Rinvoq 15 mg tablet extended release 24 hr 15 mg PO DAILY cyclobenzaprine 10 mg tablet 10 mg PO TID PRN (Reason: muscle spasm) Qty: 30 0RF propranolol 10 mg tablet 10 mg PO TID Qty: 90 1RF Discharge Orders: Discharge ED (Routine); Ordered 10/22/22 Ordered By: Rian Griffin Referrals: Mervin Harrington MD [Primary Care Provider] - 2 weeks (Follow-up for possible MRI.) Discharge Diet: Usual diet Discharge Activity: Increase activity as tolerated Activity Restrictions/Additional Instructions: As we discussed while you are in the emergency department your CT scan did not reveal any obvious signs of bleeding or other concerns today. This is not 100% sensitive test given the duration of your headache but it is reassuring at this time. Your CT scan did reveal some findings in your upper neck that may need further evaluation but this can be done via your primary care doctor. If you develop any change in the character of the headache, worsening headache, weakness, numbness, increasing neck pain return to this or the nearest emergency department immediately. Coding Level of Care Code ED [employer] for Sidney Cheng
[2022-10-22 15:03] LABS: Basophils % 0.3 %; Eosinophils # 0.2 10^3/uL (0.0-0.8); Eosinophils % 2.3 %; Hematocrit 40.3 % (37.0-47.0); Hemoglobin 12.5 g/dL (11.5-15.3); Lymphocytes # 3.1 10^3/uL (0.8-4.8); Lymphocytes % 43.8 %; Mean Corpuscular Volume 90.2 fl (81-99); Mean Platelet Volume 9.1 fL (7.4-10.4); Monocytes # 0.4 10^3/uL (0.2-0.9); Neutrophils % 47.3 %; Nucleated Red Blood Cells % 0 %; Platelet Count 402 10^3/cmm (130-400); Red Blood Count 4.47 10^6/uL (4.1-5.3); Red Cell Distribution Width 13.4 % (12.1-15.1)
[2022-10-22 15:13] LABS: Erythrocyte Sedimentation Rate 2 mm/hr (0-15)
[2022-10-22 15:17] LABS: Anion Gap 15.6 (5-19); Blood Urea Nitrogen 17 mg/dL (8-23); Carbon Dioxide 22 mmol/L (22-29); Chloride 108 mmol/L (98-107); Glucose 101 mg/dL (65-115); Osmolality Calculated 294 mOsm/kg (285-295); Potassium 4.6 mmol/L (3.5-5.1); Sodium 141 mmol/L (136-145)
[2022-10-22] MEDS: diphenhydrAMINE 50 mg/mL SDV 1mL 25 MG IVP (15:17)
[2022-10-22] MEDS: sodium chloride 0.9% 500 ML IV (15:18)
[2022-10-22] MEDS: metoclopramide 5 mg/mL SDV 2 mL 10 MG IVP (15:18)
[2022-10-22 15:57] VITALS: BP 128/77; PULSE 85; RESP 18; O2SAT 98
[2022-10-22 16:07] VITALS: BP 128/77; PULSE 60; RESP 16; O2SAT 98
== END 2022-10-22 16:08 | disposition home or self-care (01) ==
PROVIDERS: Emergency Provider Emergency Medicine; PCP Family Medicine
DX: R51.9 Headache, unspecified (principal)
CPT/HCPCS: 36415; 70450; 80048; 85025; 85651; 96361; 96374; 96375; 99285; J1200; J2765; J7040

== ENCOUNTER → 2023-01-25 09:59 | Outpatient (BNVA) | payer MEDICARE, SELFPAY | PROVIDERS: PCP Family Medicine; Visit Provider Family Medicine | DX: M05.79 Rheumatoid arthritis with rheumatoid factor of multiple sites without organ or systems involvement (principal) | CPT/HCPCS: 82565; 84460; 85025; 85651; 86140 ==

== ENCOUNTER 2023-02-24 13:07 | Outpatient (CLI) | payer MEDICARE, SELFPAY ==
--- NOTE | 2023-02-24 13:00 | XR_ITS ---
WS: [id number] SCREENING DEXA SCAN [employer] CLINICAL INFORMATION: Z78.0 - Asymptomatic menopausal state COMPARISON: None. FINDINGS: The L1-L4 bone mineral density measures 1.022 g/cm2. This corresponds to a T score score of -1.3 and Z score of 0.4. Left femoral neck bone mineral density measures 0.857 g/cm2. This corresponds to a T score of -1.2 an d Z score of 0.3. Right femoral neck bone mineral density measures 0.760 g/cm2. This corresponds to a T score -2.0of an d Z score of -0.5. Mean femoral neck bone mineral density measures 0.808 g/cm2. This corresponds to a T score of -1.6 an d Z score of -0.1. XR/XR DEXA axial skeleton* [id number] IMPRESSION: Osteopenia lumbar spine. Osteopenia femoral necks. Patient's FRAX calculated 10 year probability for major osteoporotic fracture i s 33.2 % and osteoporotic hip fracture is 10.9%. Bone mineral density in the lumbar spine has decreased -6.0% since 2020. Bone mineral density in the femoral necks decreased -1.8% since 2020
--- NOTE | 2023-02-24 13:20 | MM_ITS ---
WS: [id number] BILATERAL 3D TOMOSYNTHESIS DIGITAL SCREENING MAMMOGRAPHY WITH CAD CLINICAL INFORMATION: Z12.39 - Encounter for other screening for malignant neop... HISTORY: Screening mammogram. No current complaints. COMPARISON: January 21, 2022 TECHNIQUE: Bilateral CC and MLO views. FINDINGS: Scattered fibroglandular densities bilaterally. No suspicious focal mass, asymmetry, calcifications, or architectural distortion. No evidence of malignancy. MM/[place] [id number] IMPRESSION: BI-RADS: 1-Negative FOLLOW UP: 1 Year Follow-up Recommend return to annual screening mammography.
== END 2023-02-24 13:08 | disposition home or self-care (01) ==
PROVIDERS: PCP Family Medicine; Visit Provider Nurse Practitioner Women's Health
DX: Z12.31 Encounter for screening mammogram for malignant neoplasm of breast (principal); Z78.0 Asymptomatic menopausal state; M85.89 Other specified disorders of bone density and structure, multiple sites
CPT/HCPCS: 77063; 77067; 77080

== ENCOUNTER → 2023-07-02 09:57 | Outpatient (BNVA) | payer MEDICARE, SELFPAY | PROVIDERS: PCP Family Medicine; Visit Provider Family Medicine | DX: M05.79 Rheumatoid arthritis with rheumatoid factor of multiple sites without organ or systems involvement (principal) | CPT/HCPCS: 80053; 85025; 85651; 86140; 86480 ==

== ENCOUNTER 2023-07-05 10:54 | Outpatient (CLI) | payer MEDICARE, SELFPAY ==
--- NOTE | 2023-07-05 11:04 | XR_ITS ---
WS: [id number] Exam: XR chest 2V* [id number] Date/Time of Exam: 07/05/2023 11:08 AM Reason For Exam: SCREENING FOR RESPIRATORY TUBERCULOS Comparison 06/02/2021. The lungs are clear and fully expanded. Normal cardiomediastinal silhouette. Moderate dextroscoliosis of the T-spine. No pleural effusions. IMPRESSION: 1. No acute cardiopulmonary finding.
== END 2023-07-05 10:55 | disposition home or self-care (01) ==
PROVIDERS: PCP Family Medicine; Visit Provider Internal Medicine Rheumatology
DX: Z11.1 Encounter for screening for respiratory tuberculosis (principal)
CPT/HCPCS: 71046

== ENCOUNTER → 2023-11-17 11:45 | Outpatient (BNVA) | payer MEDICARE, SELFPAY | PROVIDERS: PCP Family Medicine; Visit Provider Clinical Nurse Specialist Adult Health | DX: R30.0 Dysuria | CPT/HCPCS: 81000; 87086 ==

== ENCOUNTER → 2024-07-02 10:53 | Outpatient (BNVA) | payer MEDICARE, SELFPAY | PROVIDERS: PCP Family Medicine; Visit Provider Emergency Medicine | DX: Q25.46 Tortuous aortic arch (principal); M53.84 Other specified dorsopathies, thoracic region; R05.3 Chronic cough | CPT/HCPCS: 71046 ==

== ENCOUNTER → 2024-08-08 15:55 | Outpatient (BNVA) | payer MEDICARE, SELFPAY | PROVIDERS: PCP Family Medicine; Visit Provider Podiatrist Foot & Ankle Surgery | DX: B07.9 Viral wart, unspecified (principal) | CPT/HCPCS: 17110; 99203 ==

== ENCOUNTER → 2024-09-20 08:28 | Outpatient (BNVA) | payer MEDICARE, SELFPAY | PROVIDERS: PCP Family Medicine; Visit Provider Podiatrist Foot & Ankle Surgery | DX: B07.9 Viral wart, unspecified (principal); N30.01 Acute cystitis with hematuria; M06.00 Rheumatoid arthritis without rheumatoid factor, unspecified site; N18.9 Chronic kidney disease, unspecified | CPT/HCPCS: 80076; 82565; 85025; 99213 ==

== ENCOUNTER 2024-10-13 18:56 | Emergency (ER) | payer MEDICARE, SELFPAY ==
[2024-10-13 19:12] VITALS: BP 146/74; PULSE 68; RESP 18; TEMP 36.7; O2SAT 100; BMI 26.4
--- NOTE | 2024-10-13 19:21 | CTR_ITS ---
PROCEDURE INFORMATION: Exam: CT Head Without Contrast Exam date and time: 10/13/2024 8:29 PM Age: 69 years old Clinical indication: Injury or trauma; Blunt trauma (contusions or hematomas); Fall with headstrike on concrete steps. No loc. No hematoma. C/O JORGENSEN. ; Additional info: Fall, head injury TECHNIQUE: Imaging protocol: Computed tomography of the head without contrast. Radiation optimization: All CT scans at this facility use at least one of these dose optimization techniques: automated exposure control; mA and/or kV adjustment per patient size (includes targeted exams where dose is matched to clinical indication); or iterative reconstruction. COMPARISON: CT head wo con* [id number] 10/22/2022 2:34 PM RADIATION DOSE METRICS: Total DLP (mGy-cm): 994.2 FINDINGS: Brain: No hemorrhage. No mass effect or midline shift. No significant white matter disease. Cerebral ventricles: No ventriculomegaly. Paranasal sinuses: Visualized sinuses are unremarkable. No fluid levels. Mastoid air cells: Visualized mastoid air cells are well aerated. Bones: Unremarkable. No acute fracture. Soft tissues: Unremarkable. CT/CT head wo con* [id number] IMPRESSION: No acute intracranial findings.
--- NOTE | 2024-10-13 21:40 | W.ED.FALL ---
HPI - Fall General: Chief Complaint: Fall Stated Complaint: Fell on Ice hit Head Time Seen by Provider: 10/13/24 21:10 Source: patient Mode of arrival: ambulatory Limitations: no limitations History of Present Illness: Patient is a 69-year-old female who presents the emergency department after a head injury occurred a couple of hours prior to coming in. Patient states she got snow on the bottom of her feet and slipped while going in the garage and struck her head on concrete. States that she has been lightheaded and has had facial twitching since but otherwise has not had any neurological deficits. She did not lose consciousness and is not on any blood thinners. No other injuries with the fall. No focal neurological deficit reported at this time. She did apply ice to the head after this happened. Vitals within normal limits at this time MD complaint: fall Onset (ago): hour(s) Fall from: standing Fall witnessed: yes, by family Place fall occurred: home Loss of consciousness: None Prolonged down time: no Symptoms prior to fall: none Context: tripped/slipped Location of injury: head Associated symptoms-after fall: Reports lightheadedness; Denies abdominal pain, chest pain, headache(s) or neck pain Related Data Home Medications ?Medication ?Instructions ?Recorded ?Confirmed naproxen sodium 220 mg capsule 220 mg PO BID PRN Pain 12/04/20 09/20/24 (Aleve) upadacitinib 15 mg tablet,extended 15 mg PO DAILY 05/04/22 09/20/24 release 24 hr (Rinvoq) calcium carbonate (Alcalak) 168 mg PO DAILY 01/20/23 09/20/24 cetirizine 10 mg tablet (24Hour 10 mg PO DAILY PRN 01/20/23 09/20/24 Allergy) ferrous sulfate 325 mg (65 mg 325 mg PO DAILY 01/20/23 09/20/24 iron) tablet multivitamin 1 tab PO DAILY 02/16/24 09/20/24 Previous Rx's ?Medication ?Instructions ?Recorded hydrocortisone 2.5 % topical 1 applic topical BID PRN skin 05/12/21 ointment irritation #28.35 grams cyclobenzaprine 10 mg tablet 10 mg PO TID PRN muscle spasm #30 10/20/22 tabs tobramycin 0.3 %-dexamethasone 0.1 1 drp ophthalmic (eye) QID #5 mL 12/21/23 % eye drops,suspension clobetasol 0.05 % topical ointment 1 applic topical .COMPLEX #15 grams 02/16/24 levofloxacin 500 mg tablet 500 mg PO DAILY 7 days #7 tabs 06/28/24 albuterol sulfate 90 mcg/actuation 2 inh inhalation Q6H PRN shortness 07/02/24 aerosol inhaler of breath or wheezing #8.5 grams azithromycin 500 mg tablet 500 mg PO DAILY 5 days #5 tabs 07/02/24 (Zithromax) cefdinir 300 mg capsule 300 mg PO BID 10 days #20 caps 07/02/24 prednisone 20 mg tablet 60 mg (3 x 20 mg) PO DAILY 5 days 07/02/24 #15 tabs promethazine-DM 6.25 mg-15 mg/5 mL 10 ml PO Q6H PRN cough #473 mL 07/02/24 oral syrup topiramate 100 mg tablet 100 mg PO BEDTIME #90 tabs 07/24/24 fluorouracil 5 % topical cream 1 applic topical BID 4 weeks #40 08/08/24 (Efudex) grams Allergies Allergy/AdvReac Type Severity Reaction Status Date / Time No Known Allergies Allergy Verified 09/20/24 08:30 Review of Systems General: Reports: 10 or more systems reviewed and unremarkable except in HPI and below Const: Reports: other (Fall/head injury); Denies: fever(s), chills or fatigue Eyes: Denies: change in vision ENMT: Denies: throat pain, ear or mastoid pain or nasal discharge Card: Reports: lightheadedness; Denies: chest pain, palpitations or swelling of feet/ankles Resp: Denies: dyspnea, productive cough or wheezing GI: Denies: abdominal pain, nausea, vomiting, diarrhea or constipation Musc: Denies: neck pain, back pain or joint pain Skin/Breast: Denies: rash Neuro: Denies: headache(s), numbness in extremities or weakness in extremities PFSH ED PFSH: Medical History No pertinent past medical history Denies diabetes, asthma, hypertension, seizures, DVT/PE PCP: Dr. Harrington Rheumatoid arthritis Diagnosed in 2019 and is currently on medications managed by office support Dr. Andrews History of migraine Has had migraines since her 30s and it is controlled with medication managed by her primary care provider. She does not have a neurologist Surgical History History of back surgery (~01/2021) 1. Right L3/4 laminectomy with partial facetectomy 2. Right L4/5 laminectomy with partial facetectomy Performed by Dr. Shaw History of hand surgery 2015---right hand fusion done by Dr. Atkins for arthritis S/P bilateral cataract extraction Done in 2015 History of cholecystectomy October 2017----laparoscopic procedure performed by Dr. 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 Physical Exam Const: COMMON NORMALS: no acute distress, patient oriented x3 and no limitations GENERAL APPEARANCE: cooperative, comfortable and well developed ORIENTATION/CONSCIOUSNESS: Yes awake, Yes oriented to person, Yes oriented to place and Yes oriented to time HENMT: COMMON NORMALS: normocephalic, atraumatic and hearing grossly normal bilaterally HEAD & SCALP: normocephalic and atraumatic; no Diaz's sign, no hematoma, no raccoon eyes and no scalp tenderness FACE & SINUS: normal facial exam Eye: COMMON NORMALS: Equal, round and reactive pupils present, EOMs intact bilaterally and conjunctivae normal CONJUNCTIVA: Yes conjunctivae normal PUPIL: Yes Equal, round and reactive pupils present OTHER: Eyes track midline, no nystagmus Neck/C-Spine: COMMON NORMALS: full ROM, supple and no JVD OTHER: No cervical spine tenderness Resp: COMMON NORMALS: normal respiratory effort, No retractions, No use of accessory muscles and clear to auscultation bilaterally AUSCULTATION: clear to auscultation bilaterally Cardio: COMMON NORMALS: no JVD, regular rate, regular rhythm, No clicks present (Cardio), No murmurs present (Cardio) and No rub (Cardio) RATE: regular rate RHYTHM: regular rhythm GI: COMMON NORMALS: Normal to inspection, nondistended, normoactive bowel sounds present, Soft to palpation and non-tender AUSCULTATION: Yes normoactive bowel sounds PALPATION: Yes Soft to palpation RECTAL EXAM: deferred Extremity: COMMON NORMALS: normal to inspection, full ROM and capillary refill normal Neuro: COMMON NORMALS: patient oriented x3, CN's II-XII intact bilaterally, moves all extremities, no focal motor deficits and no sensory deficits noted SENSORIUM/ORIENTATION: Yes oriented to person, Yes oriented to place and Yes oriented to time COORDINATION/BALANCE: [id number] test normal and [id number] test normal SPEECH: speech normal GAIT: Yes Normal gait present MOTOR EXAM: 5/5 motor strength present throughout, Pronator motor function not present and no tremor noted COORDINATION: [id number] test normal and [id number] test normal Skin: COMMON NORMALS: no rashes or lesions noted GENERAL SKIN EXAM: no rashes or lesions noted Course Vital Signs: Vital signs: Vital Signs Temperature 98.0 F 10/13/24 19:12 Pulse Rate 68 10/13/24 19:12 Respiratory Rate 18 10/13/24 19:12 Blood Pressure 146/74 10/13/24 19:12 Pulse Oximetry 100 10/13/24 19:12 Oxygen Delivery Me thod Room Air 10/13/24 19:12 MDM - Fall Medical Decision Making Patient fell before coming in, neurologically intact on physical exam. Vitals have been stable. CT was negative for any intracranial findings and there was no sign of hematoma on exam. Cannot rule out concussion, discussed this with the patient and reasons to return were discussed thoroughly. All of her questions and concerns addressed, patient verbalized understanding to return precautions. Lab Data Radiology Impressions Head CT 10/13/24 19:21 IMPRESSION: No acute intracranial findings. All radiology interpretation(s) finalized by discharge Discharge Plan Discharge Patient Disposition: Home Clinical Impression: CHI (closed head injury) Qualifiers: Encounter type: initial encounter Qualified Code(s): S09.90XA - Unspecified injury of head, initial encounter Condition: Stable Prescriptions: No Action hydrocortisone 2.5 % ointment 1 applic topical BID PRN (Reason: skin irritation) Qty: 28.35 1RF Rx Instructions: To face no more than 2 weeks naproxen sodium [Aleve] 220 mg capsule 220 mg PO BID PRN (Reason: Pain) ferrous sulfate 325 mg (65 mg iron) tablet 325 mg PO DAILY Alcalak 168 mg calcium (420 mg) tablet,chewable 168 mg PO DAILY cetirizine [24Hour Allergy] 10 mg tablet 10 mg PO DAILY PRN Rinvoq 15 mg tablet extended release 24 hr 15 mg PO DAILY cyclobenzaprine 10 mg tablet 10 mg PO TID PRN (Reason: muscle spasm) Qty: 30 0RF fluorouracil [Efudex] 5 % cream 1 applic topical BID 28 Days Qty: 40 2RF multivitamin Tablet 1 tab PO DAILY clobetasol 0.05 % ointment 1 applic topical .COMPLEX Qty: 15 1RF Rx Instructions: 1 applic topical 2 times weekly tobramycin-dexamethasone 0.3-0.1 % drops,suspension 1 drp ophthalmic (eye) QID Qty: 5 0RF levofloxacin 500 mg tablet 500 mg PO DAILY 7 Days Qty: 7 0RF cefdinir 300 mg capsule 300 mg PO BID 10 Days Qty: 20 0RF azithromycin [Zithromax] 500 mg tablet 500 mg PO DAILY 5 Days Qty: 5 0RF prednisone 20 mg tablet 60 mg PO DAILY 5 Days Qty: 15 0RF albuterol sulfate 90 mcg/actuation HFA aerosol inhaler 2 inh inhalation Q6H PRN (Reason: shortness of breath or wheezing) Qty: 8.5 0RF promethazine-DM 6.25-15 mg/5 mL syrup 10 ml PO Q6H PRN (Reason: cough) Qty: 473 0RF topiramate 100 mg tablet 100 mg PO BEDTIME Qty: 90 2RF Discharge Orders: Discharge ED (Routine); Ordered 10/13/24 Ordered By: Landon Gibbons Referrals: Mervin Harrington MD [Primary Care Provider] - Patient Instructions: Head Injury (ED) Activity Restrictions/Additional Instructions: Ibuprofen or Tylenol for pain. Apply ice to your head for any swelling. Monitor your condition closely for any worsening return to the ED. Please follow-up routinely with primary care. May continue taking home medications as prescribed. Print Language: Estonian Coding Level of Care Code ED Stock Sorter for Sidney Cheng
[2024-10-13 22:06] VITALS: BP 147/74; PULSE 98; RESP 16; O2SAT 96
== END 2024-10-13 22:04 | disposition home or self-care (01) ==
PROVIDERS: Emergency Provider Physician Assistant; PCP Family Medicine
DX: S09.8XXA Other specified injuries of head, initial encounter (principal); W00.0XXA Fall on same level due to ice and snow, initial encounter
CPT/HCPCS: 70450; 99284

== ENCOUNTER → 2025-02-21 12:09 | Outpatient (BNVA) | payer MEDICARE, SELFPAY | PROVIDERS: PCP Family Medicine; Visit Provider Nurse Practitioner Women's Health | DX: M85.80 Other specified disorders of bone density and structure, unspecified site (principal); Z79.899 Other long term (current) drug therapy | CPT/HCPCS: 82306; 84443 ==

== ENCOUNTER 2025-02-26 14:16 | Outpatient (CLI) | payer MEDICARE, SELFPAY ==
--- NOTE | 2025-02-26 14:30 | XR_ITS ---
WS: [id number] SCREENING DEXA SCAN [employer] [facility] CLINICAL INFORMATION: Z78.0 - Asymptomatic menopausal state COMPARISON: 2022 FINDINGS: The L1-L4 bone mineral density measures 0.979 g/cm2. This corresponds to a T score score of -1.7 and Z score of 0.1. Left femoral neck bone mineral density measures 0.797 g/cm2. This corresponds to a T score of -1.7 and Z score of -0.1. Right femoral neck bone mineral density measures 0.770 g/cm2. This corresponds to a T score -1.9of and Z score of -0.3. Mean femoral neck bone mineral density measures 0.783 g/cm2. This corresponds to a T score of -1.8 and Z score of -0.2. XR/XR DEXA axial skeleton* [id number] IMPRESSION: Osteopenia lumbar spine. Osteopenia femoral necks. Patient's FRAX calculated 10 year probability for major osteoporotic fracture i s 30.2% and osteoporotic hip fracture is 13.5%.
--- NOTE | 2025-02-26 15:00 | MM_ITS ---
WS: [id number] BILATERAL 3D TOMOSYNTHESIS DIGITAL SCREENING MAMMOGRAPHY WITH CAD CLINICAL INFORMATION: Z12.31 - Encounter for screening mammogram for malignant ... HISTORY: Screening mammogram. No current complaints. COMPARISON: 2022 TECHNIQUE: Bilateral CC and MLO views. FINDINGS: Scattered fibroglandular densities bilaterally. No suspicious focal mass, asymmetry, calcifications, or architectural distortion. No evidence of malignancy. MM/MM scr tomosynthesis [id number] IMPRESSION: DENSITY: There are scattered areas of fibroglandular density. BI-RADS: 1 - Negative. FOLLOW UP: 1 Year Follow-up Recommend return to annual screening mammography.
== END 2025-02-26 14:17 | disposition home or self-care (01) ==
LOC: RAD 14:17
PROVIDERS: PCP Family Medicine; Visit Provider Nurse Practitioner Women's Health
DX: Z12.31 Encounter for screening mammogram for malignant neoplasm of breast (principal); Z13.820 Encounter for screening for osteoporosis; R92.323 Mammographic fibroglandular density, bilateral breasts; Z78.0 Asymptomatic menopausal state; M85.88 Other specified disorders of bone density and structure, other site; M85.852 Other specified disorders of bone density and structure, left thigh; M85.851 Other specified disorders of bone density and structure, right thigh
CPT/HCPCS: 77063; 77067; 77080

== ENCOUNTER 2025-04-04 06:45 | Outpatient (CLI) | payer MEDICARE, SELFPAY ==
--- NOTE | 2025-04-04 07:00 | US_ITS ---
WS: [id number] RENAL ULTRASOUND URINARY BLADDER ULTRASOUND HISTORY: CKD COMPARISON: None available. TECHNIQUE: 2-D and color Doppler imaging of the kidney submitted. Right kidney: 10.3 cm x 4.7 cm x 5.0 cm. Normal size kidney. Mild increased echogenicity. No mass identified. There is very minimal splitting of the renal pelvis. No dilatation of the calyces. Left kidney: 8.6 cm x 4.9 cm x 4.9 cm. Mild atrophy with increased echogenicity. No hydronephrosis. No mass. Aorta: Normal. Urinary Bladder: Normal distention. Prevoid volume: 136 mL. Post void volume: 46 mL. US/US renal BI with PV bladder IMPRESSION: 1. Low normal size LEFT kidney with mild medical renal disease. 2. Normal size RIGHT kidney with mild medical renal disease. 3. No significant post void residual in the urinary bladder. 4. Very minimal pelviectasis RIGHT kidney. No hydronephrosis.
== END 2025-04-04 06:46 | disposition home or self-care (01) ==
LOC: RAD 06:46
PROVIDERS: PCP Family Medicine; Visit Provider Family Medicine
DX: N18.30 Chronic kidney disease, stage 3 unspecified (principal); R93.422 Abnormal radiologic findings on diagnostic imaging of left kidney; N27.0 Small kidney, unilateral; R93.421 Abnormal radiologic findings on diagnostic imaging of right kidney
CPT/HCPCS: 76770; 76857

== ENCOUNTER → 2025-05-30 11:12 | Outpatient (BNVA) | payer MEDICARE, SELFPAY | PROVIDERS: PCP Family Medicine; Visit Provider Family Medicine | DX: Z79.899 Other long term (current) drug therapy (principal); D89.89 Other specified disorders involving the immune mechanism, not elsewhere classified | CPT/HCPCS: 80053; 82550; 85007; 85027; 85651; 86140 ==